=== PATIENT | male | born 1965 | race Caucasian/White ===

== ENCOUNTER 2017-06-14 08:07 | Emergency (ER) | payer OTHER ==
[2017-06-14 08:21] VITALS: TEMP 98; BMI 30.7
[2017-06-14] MEDS ORDERED: KETOROLAC TROMETHAMINE 30 MG/1 ML VIAL IVPUSH ONE (09:47)
[2017-06-14] MEDS ORDERED: KETOROLAC TROMETHAMINE 30 MG/1 ML VIAL ONE (09:51)
--- NOTE | 2017-06-14 10:07 | PDOC ---
History of Present Illness - General History Source: Patient - History of Present Illness Timing/Duration: reports: intermittent Abdominal Pain Onset Location: reports: RUQ <Linda SpiveyAlannaRebekah Last Filed: 06/14/17 11:43> <Ligia Reyna - Last Filed: 06/14/17 16:21> - General Chief Complaint: Pain Stated Complaint: right side pain Time Seen by Provider: 06/14/17 08:40 Past History - Past Medical History COPD: No Other medical history: denies. - Suicide/Smoking/Psychosocial Hx Smoking History: Never smoked <Linda SpiveyAlannaRebekah - Last Filed: 06/14/17 11:43> <Ligia Reyna - Last Filed: 06/14/17 16:21> - Past Medical History Allergies/Adverse Reactions: Allergies Allergy/AdvReac Type Severity Reaction Status Date / Time No Known Allergies Allergy Verified 06/14/17 08:16 Home Medications: Ambulatory Orders Aspirin [ASA -] 81 mg PO DAILY 06/14/17 Review of Systems - Review of Systems Constitutional: No: Chills, Fever Respiratory: No: Shortness of Breath Cardiac (ROS): No: Chest Pain ABD/GI: No: Blood Streaked Bowels, Constipated, Diarrhea, Nausea, Vomiting : No: Dysuria, Flank Pain, Hematuria <Linda SpiveyAlannaRebekah Last Filed: 06/14/17 11:43> *Physical Exam - Vital Signs Last Vital Signs Temp Pulse Resp BP Pulse Ox 98 F 63 19 125/78 98 06/14/17 08:17 06/14/17 08:17 06/14/17 08:17 06/14/17 08:17 06/14/17 08:17 - Physical Exam General Appearance: Yes: Appropriately Dressed. No: Apparent Distress HEENT: positive: Normal Voice Neck: positive: Supple Respiratory/Chest: positive: Lungs Clear, Normal Breath Sounds. negative: Respiratory Distress Cardiovascular: positive: Regular Rate, S1, S2 Gastrointestinal/Abdominal: positive: Normal Bowel Sounds, Soft. negative: Tender, Guarding, Rebound, Tenderness Musculoskeletal: negative: CVA Tenderness Integumentary: positive: Dry, Warm Neurologic: positive: Fully Oriented, Alert, Normal Mood/Affect <GuamanianJeet Last Filed: 06/14/17 11:43> - Vital Signs Last Vital Signs Temp Pulse Resp BP Pulse Ox 98 F 66 18 122/70 98 06/14/17 08:17 06/14/17 11:48 06/14/17 11:48 06/14/17 11:48 06/14/17 11:48 <Ligia Reyna - Last Filed: 06/14/17 16:21> ED Treatment Course - LABORATORY CBC & Chemistry Diagram: 06/14/17 10:00 06/14/17 10:00 <Jeet Spivey - Last Filed: 06/14/17 11:43> - LABORATORY CBC & Chemistry Diagram: 06/14/17 10:00 06/14/17 10:00 - ADDITIONAL ORDERS Additional order review: Laboratory Results 06/14/17 06/14/17 10:00 10:00 Sodium 139 Potassium 4.4 Chloride 104 Carbon Dioxide 30 Anion Gap 5 L BUN 12 Creatinine 1.4 H Creat Clearance w eGFR 53.86 Random Glucose 97 Calcium 9.6 Total Bilirubin 0.7 AST 20 ALT 26 Alkaline Phosphatase 71 Total Protein 7.8 Albumin 4.1 Lipase 146 Urine Color Ltyellow Urine Appearance Clear Urine pH 7.0 Ur Specific [place] 1.016 Urine Protein Negative Urine Glucose (UA) Negative Urine Ketones Negative Urine Blood Negative Urine Nitrite Negative Urine Bilirubin Negative Urine Urobilinogen Negative 06/14/17 10:00 RBC 4.74 MCV 91.2 MCHC 33.3 RDW 13.5 MPV 8.5 Neutrophils % 58.7 Lymphocytes % 32.4 Monocytes % 7.6 Eosinophils % 0.6 Basophils % 0.7 - Medications Given in the ED: ED Medications Discontinued Medications Generic Name Dose Route Start Last Admin Trade Name Mosheq PRN Reason Stop Dose Admin Ketorolac Tromethamine 30 mg 06/14/17 09:47 06/14/17 10:02 Toradol Injection - IVPUSH 06/14/17 09:48 30 mg ONCE ONE Administration <Ligia Reyna - Last Filed: 06/14/17 16:21> Medical Decision Making - Medical Decision Making 06/14/17 09:52 51 yo M, no sig hx, here abdominal pain. Patient reports pain to right mid abdomen 3 days, unable to describe, intermittent and worse with movement. No nausea, vomiting, change in bowel movements, dysuria, hematuria, fever or chills. No history of gallstones or kidney stones. No history of similar pain. See exam RUQ pain Pain free currently and well marine w/ benign abd Possible MSK vs biliary source, unlikely pyelo -labs and US pending 06/14/17 11:21 Labs and US neg. Pt remains pain free. Pain m/l MSK. Dc w/ OTC meds for pain control. PMD f/u 06/14/17 11:22 <Jeet Spivey - Last Filed: 06/14/17 11:43> *DC/Admit/Observation/Transfer <Jeet Spivey - Last Filed: 06/14/17 11:43> - Attestations Physician Attestion: I reviewed the case with the mid-level practitioner and agree with the mid- level practitioner's assessment, diagnosis and disposition. <Ligia Reyna - Last Filed: 06/14/17 16:21> Diagnosis at time of Disposition: Abdominal pain Qualifiers: Abdominal location: right upper quadrant Qualified Code(s): R10.11 - Right upper quadrant pain - Discharge Dispostion Disposition: HOME Condition at time of disposition: Good - Referrals Referrals: Yoly Bell MD [Primary Care Provider] - STAFF,NOT ON [Non Staff, Medical] - - Patient Instructions Printed Discharge Instructions: DI for Abdominal Pain-Adult Additional Instructions: The cause of your pain is unclear at this time as your labs and ultrasound were negative. It is possible that the pain is muscular. Take Motrin or Tylenol as needed and follow-up with your doctor - Post Discharge Activity Forms/Work/School Notes: Back to Work
[2017-06-14 10:10] LABS: BASOPHIL 0.7 % (0-2.0); EOSINOPHIL 0.6 % (0-4.5); MCH 30.4 pg (25.7-33.7); MCHC 33.3 g/dl (32.0-35.9); MEAN CELL VOLUME 91.2 fl (80-96); MEAN PLT VOLUME 8.5 fl (7.5-11.1); NEUTROPHILS 58.7 % (42.8-82.8); PLATELET COUNT 227 K/MM3 (134-434); RDW 13.5 % (11.9-15.9); WHITE BLOOD COUNT 7.8 K/mm3 (4.0-10.0)
[2017-06-14 10:11] LABS: URINE APPEARANCE CLEAR; URINE BILIRUBIN NEGATIVE (NEGATIVE); URINE BLOOD NEGATIVE (NEGATIVE); URINE COLOR LTYELLOW; URINE GLUCOSE (UA) NEGATIVE (NEGATIVE); URINE KETONE NEGATIVE (NEGATIVE); URINE NITRITE NEGATIVE (NEGATIVE); URINE PROTEIN NEGATIVE (NEGATIVE); URINE UROBILINOGEN NEGATIVE mg/dL (0.2-1.0)
[2017-06-14 10:32] LABS: ALBUMIN 4.1 g/dl (3.4-5.0); ALK PHOS 71 U/L (45-117); ANION GAP 5 (8-16); BILIRUBIN,TOTAL 0.7 mg/dL (0.2-1.0); CALCIUM 9.6 mg/dL (8.5-10.1); CO2 30 mmol/L (21-32); CREATININE 1.4 mg/dL (0.7-1.3); GLUCOSE,RANDOM 97 mg/dL (74-106); SGOT/AST 20 U/L (15-37); SGPT/ALT 26 U/L (12-78); TOT PROT 7.8 g/dl (6.4-8.2)
[2017-06-14 11:48] VITALS: BP 122/70; PULSE 66
[2017-06-14 19:55] LABS: URINE LEUK ESTERASE Negative (NEGATIVE)
== END 2017-06-14 11:48 | disposition home or self-care (01) ==
LOC: JERFT 08:07 → JER 08:07 → SUPCPDRO 08:07 → JER 11:48
PROC: 3E0333Z Introduction of Anti-inflammatory into Peripheral Vein, Percutaneous Approach (ICD-10-PCS; principal; 2017-06-14)
DX: R10.11 Right upper quadrant pain (principal)
CPT/HCPCS: 36415; 76705-TC; 80053; 81003; 83690; 85025; 96374; 99282-25

== ENCOUNTER 2017-12-02 15:38 | Emergency (ER) | payer OTHER ==
--- NOTE | 2017-12-02 15:56 | PDOC ---
Rapid Medical Evaluation Time Seen by Provider: 12/02/17 15:54 Medical Evaluation: Allergies Allergy/AdvReac Type Severity Reaction Status Date / Time No Known Allergies Allergy Verified 06/14/17 08:16 12/02/17 15:55 Healthy 51 year old male with tender mass to right side of neck since Saturday, feels like it is limiting his range of motion. No fevers/chills. No dysphagia. Alert, oriented, no distress. Tender, mobile, firm 1.5 cm mass right neck. No drooling, stridor. V/s unremarkable. -To FT for further evaluation
[2017-12-02 15:57] VITALS: BP 146/81; PULSE 87; TEMP 98.6; BMI 31.6
--- NOTE | 2017-12-02 17:15 | PDOC ---
History of Present Illness - General Chief Complaint: Wound Stated Complaint: ABSCESS Time Seen by Provider: 12/02/17 15:54 History Source: Patient Exam Limitations: No Limitations - History of Present Illness Initial Comments: 12/02/17 17:18 Best Contact: PCP: N/A Pmhx: N/A Pshx:N/A Allergies:NKDA 51-year-old male presents to the ER complaining of a bump to the right side of his neck. Patient states he noticed it after shaving approximately one week ago. Patient states it was initially slightly red which has subsided. Patient denies fever, chills, nausea/vomiting, neck pains. Patient states he gets these bumps intermittently after shaving. Patient denies any drainage or pain on palpation. Past History - Past Medical History Allergies/Adverse Reactions: Allergies Allergy/AdvReac Type Severity Reaction Status Date / Time No Known Allergies Allergy Verified 12/02/17 15:55 Home Medications: Ambulatory Orders Cephalexin Monohydrate [Keflex -] 500 mg PO BID #10 capsule 12/02/17 COPD: No - Suicide/Smoking/Psychosocial Hx Smoking History: Never smoked Hx Alcohol Use: No Drug/Substance Use Hx: No Review of Systems - Review of Systems Able to Perform ROS?: Yes Comments:: 12/02/17 17:20 CONSTITUTIONAL: Absent: fever, chills, diaphoresis, generalized weakness, malaise, loss of appetite HEENT: Absent: rhinorrhea, nasal congestion, throat pain, throat swelling, difficulty swallowing, mouth swelling, ear pain, eye pain, visual Changes CARDIOVASCULAR: Absent: chest pain, loss of consciousness, palpitations, irregular heart rate, peripheral edema RESPIRATORY: Absent: cough, shortness of breath, dyspnea with exertion, orthopnea, wheezing, stridor, hemoptysis GASTROINTESTINAL: Absent: abdominal pain, abdominal distension, nausea, vomiting, diarrhea, constipation, melena, hematochezia GENITOURINARY: Absent: dysuria, frequency, urgency, hesitancy, hematuria, flank pain, genital pain MUSCULOSKELETAL: Absent: myalgia, arthralgia, joint swelling SKIN: Absent: rash, itching, pallor +BUMP TO RIGHT SIDED NECK Is the patient limited [place]ib[place]ian proficient: No *Physical Exam - Vital Signs Last Vital Signs Temp Pulse Resp BP Pulse Ox 98.6 F 87 18 146/81 97 12/02/17 15:55 12/02/17 15:55 12/02/17 15:55 12/02/17 15:55 12/02/17 15:55 - Physical Exam Comments: 12/02/17 17:20 GENERAL: Well developed, well nourished. Awake and alert. No acute distress. HEENT: Normocephalic, atraumatic. PERRLA, EOMI. No conjunctival pallor. Sclera are non- icteric. Moist mucous membranes. Oropharynx is clear. NECK: Supple. Full ROM. No JVD. Carotid pulses 2+ and symmetric, without bruits. No thyromegaly. No lymphadenopathy. CARDIOVASCULAR: Regular rate and rhythm. No murmurs, rubs, or gallops. Distal pulses are 2+ and symmetric. PULMONARY: No evidence of respiratory distress. Lungs clear to auscultation bilaterally. No wheezing, rales or rhonchi. ABDOMINAL: Soft. Non-tender. Non-distended. No rebound or guarding. No organomegaly. Normoactive bowel sounds. MUSCULOSKELETAL Normal range of motion at all joints. No bony deformities or tenderness. No CVA tenderness. EXTREMITIES: No cyanosis. No clubbing. No edema. No calf tenderness. SKIN: Warm and dry. Normal capillary refill. No rashes. No jaundice. RIght sided neck; 1.5cm circular non mobile induration Moderate Sedation - Procedure Monitoring Vital Signs: Vital Signs Temp Pulse Resp BP Pulse Ox 98.6 F 87 18 146/81 97 12/02/17 15:55 12/02/17 15:55 12/02/17 15:55 12/02/17 15:55 12/02/17 15:55 *DC/Admit/Observation/Transfer Diagnosis at time of Disposition: Folliculitis - Discharge Dispostion Disposition: HOME Condition at time of disposition: Stable Decision to Admit order: No - Prescriptions Prescriptions: Cephalexin Monohydrate [Keflex -] 500 mg PO BID #10 capsule - Referrals Referrals: Fredi Barrientos MD [Staff Physician] - - Patient Instructions Printed Discharge Instructions: DI for Folliculitis Additional Instructions: You can follow-up with Dr. Barrientos/general surgeon or the clinic at [address] [place] [address]. in [place] Warm compress Avoid squeezing or manipulating the nodule Take Tylenol as needed for pain Return to the ER for severe/persistent or worsening symptoms Keflex as directed - Post Discharge Activity Forms/Work/School Notes: Back to Work
== END 2017-12-02 17:19 | disposition home or self-care (01) ==
LOC: JERFT 15:38
DX: L73.8 Other specified follicular disorders (principal)
CPT/HCPCS: 99281-25

== ENCOUNTER 2018-03-06 09:03 | Emergency (ER) | payer BC, OTHER ==
[2018-03-06 09:10] VITALS: TEMP 97.8; BMI 29.9
[2018-03-06] MEDS ORDERED: ACETAMINOPHEN 325 MG TABLET (FP) PO ONE (09:45)
[2018-03-06] MEDS ORDERED: KETOROLAC TROMETHAMINE 60 MG/2 ML VIAL IM ONE (09:45)
--- NOTE | 2018-03-06 09:46 | PDOC ---
History of Present Illness - General Chief Complaint: Pain Stated Complaint: RT SIDE PAIN,FEVER Time Seen by Provider: 03/06/18 09:25 History Source: Patient Exam Limitations: No Limitations - History of Present Illness Travel History: No Initial Comments: Patient is a 52 year old serbian speaking male, who presents with right sided flank pain for 1 month. Patient states that his right sided flank pain initially began 1 month ago and was intermittent but became progressively much worse 3 days ago. On Saturday he saw his PCP who sent him to get blood work done. This morning he woke up with worsening right sided flank pain that he describes as intermittent, last for a few seconds, worse with movement. He also reports light brown colored urine and decreased urine output. Patient reports that he did not take any medication for the pain. Denies nausea, vomiting, chest pain, shortness of breath, cough, headache, dizziness, numbness/tingling/weakness, urinary or bowel incontinence. 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 Past History - Past Medical History Allergies/Adverse Reactions: Allergies Allergy/AdvReac Type Severity Reaction Status Date / Time No Known Allergies Allergy Verified 03/06/18 09:05 Home Medications: Ambulatory Orders Acetaminophen 650 mg PO QID PRN #60 capsule 03/06/18 Ibuprofen 400 mg PO QID #30 tablet 03/06/18 COPD: No DVT: No - Suicide/Smoking/Psychosocial Hx Smoking History: Never smoked Information on smoking cessation initiated: No Hx Alcohol Use: No Drug/Substance Use Hx: No Substance Use Type: Cocaine Review of Systems - Review of Systems Able to Perform ROS?: No Comments:: 03/06/18 13:46 CONSTITUTIONAL: Reported: diaphoresis with pain No reported: Chills, Generalized Weakness, Malaise, Loss of Appetite HEENT: No reported: Rhinorrhea, Nasal Congestion, Throat Pain, Throat Swelling, Difficulty Swallowing, Mouth Swelling, Ear Pain, Eye Pain, Visual Changes CARDIOVASCULAR: No reported: Chest Pain, Syncope, Palpitations, Irregular Heart Rate, Lightheadedness, Peripheral Edema RESPIRATORY: No reported: Cough, Shortness of Breath, SOB with Exertion, Orthopnea, Wheezing , Stridor, Hemoptysis GASTROINTESTINAL: No reported: Abdominal pain, Abdominal Distension, Nausea, Vomiting, Diarrhea, Constipation, Melena, Hematochezia GENITOURINARY: Reported: decreased urine output, light brown colored urine No reported: Dysuria, Frequency, Urgency, Hesitancy, Flank Pain, Genital Pain MUSCULOSKELETAL: Reported: Right sided flank pain No reported: Myalgia, Arthralgia, Joint Swelling,Neck Pain SKIN: No reported: Rash, Itching, Pallor HEMEATOLOGIC/IMMUNOLOGIC: No reported: Easy Bleeding, Easy Bruising, Lymphadenopathy, Frequent infections ENDOCRINE: No reported: Unexplained Weight Gain, Unexplained Weight Loss, Heat Intolerance , Cold Intolerance NEUROLOGIC: No reported: Headache, Focal Weakness, Paresthesias, Vertigo, Lightheadedness, Unsteady Gait, Seizure, Mental Status Changes, Incontinence PSYCHIATRIC: No reported: Anxiety, Depression *Physical Exam - Vital Signs Last Vital Signs Temp Pulse Resp BP Pulse Ox 97.8 F 56 L 18 110/71 100 03/06/18 09:07 03/06/18 09:07 03/06/18 09:19 03/06/18 09:07 03/06/18 09:07 - Physical Exam Comments: 03/06/18 13:55 oriented, Nontoxic - in no acute distress. HEAD: Normocephalic, atraumatic. EYES: extraocular movements intact, sclera anicteric, conjunctiva clear. ENT: Normal voice, Moist mucous membranes. NECK: Normal range of motion, supple LUNGS: Breath sounds equal, clear to auscultation bilaterally. No wheezes, no rhonchi, no rales. HEART: Regular rate and rhythm, without murmur, rub or gallop. ABDOMEN: Soft, nontender, No guarding, no rebound.No CVA tenderness EXTREMITIES: Normal range of motion, no edema. No cyanosis. No erythema, or tenderness. MSK: TTP on R lower back parapsinal muscles NEUROLOGICAL: No facial assymetry, Normal speech, moving all 4 extremities spontaneously and symmetrically, normal gait. PSYCH: Normal mood, normal affect. SKIN: Warm, Dry, normal turgor, Medical Decision Making - Medical Decision Making 03/06/18 09:52 52-year-old man no past medical history presenting with intermittent right flank pain for the past month worsening on Saturday associated with some sweats when he has pain, pain is worse with movement, associated with dark colored urine for past couple of days. The patient is well-appearing, no acute distress he has mild tenderness to the right lumbar spine paraspinal muscles. Suspect muscular cause of his pain however consider possible kidney stones Will obtain UA to rule out hematuria Tylenol and Toradol for pain control Will reassess 03/06/18 11:02 Pts UA neg for blood pt feeling improved will dc with supportiv care and pmd fu return precautions were discussed I discussed the physical exam findings, ancillary test results and final diagnoses with the patient. I answered all of the patient's questions. The patient was satisfied with the care received and felt comfortable with the discharge plan and treatment plan. The patient will call their primary care physician within 24 hours to arrange follow-up and will return to the Emergency Department with any new, persistent or worsening symptoms. *DC/Admit/Observation/Transfer Diagnosis at time of Disposition: Lower back pain Qualifiers: Chronicity: acute Back pain laterality: right Sciatica presence: without sciatica Qualified Code(s): M54.5 - Low back pain - Discharge Dispostion Disposition: HOME Condition at time of disposition: Improved Decision to Admit order: No - Prescriptions Prescriptions: Acetaminophen 650 mg PO QID PRN #60 capsule PRN Reason: Back Pain Ibuprofen 400 mg PO QID #30 tablet - Referrals Referrals: [facility] – [place] [facility] [place] [Provider Group] - Patient Instructions Printed Discharge Instructions: DI for Low Back Pain Additional Instructions: Regrese al departamento de emergencia de inmediato con CUALQUIER sntoma nuevo, persistente o que empeore incluyendo entumecimiento, hormigueo, debilidad, fiebre o cualquier otra inquietud. [place] ibuprofeno (400 mg) / tylenol (650 mg) cada 6 horas caty 2 omer. Aplica calor a tus msculos adoloridos. DEBE llamar y hacer un seguimiento con hernandez mdico dentro de los 5 omer para angel luis evaluacin adicional de ahsan sntomas. Hernandez visita al departamento de emergencia no est completa sin un seguimiento con hernandez mdico para la reevaluacin. Los resultados se discutieron con usted. Asegrese de que hernandez mdico revise los resultados de hernandez evaluacin de emergencia. Return to the emergency department immediately with ANY new, persistent or worsening symptoms including numbness, tingling, weakness, fevers or any other concerns. Take ibuprofen (400mg)/tylenol(650mg) every 6 hours for 2 days.. Apply heat to your sore muscles. You MUST call and follow up with your doctor within 5 days for further evaluation of your symptoms. Your emergency department visit is not complete without a followup with your doctor for reevaluation.. Results were discussed with you. Please make sure your doctor reviews the results of your emergency evaluation. Print Language: [place] - Post Discharge Activity Forms/Work/School Notes: Back to Work
[2018-03-06] MEDS ORDERED: KETOROLAC TROMETHAMINE 60 MG/2 ML VIAL ONE (10:03)
[2018-03-06] MEDS ORDERED: ACETAMINOPHEN 325 MG TABLET (FP) ONE (10:03)
[2018-03-06 10:32] LABS: URINE APPEARANCE CLEAR; URINE BILIRUBIN NEGATIVE (<2.0 mg/dL); URINE COLOR LTYELLOW; URINE GLUCOSE (UA) NEGATIVE (NEGATIVE); URINE KETONE NEGATIVE (NEGATIVE); URINE LEUK ESTERASE NEGATIVE (NEGATIVE); URINE NITRITE NEGATIVE (NEGATIVE); URINE PROTEIN NEGATIVE (NEGATIVE); URINE UROBILINOGEN NEGATIVE mg/dL (0.2-1.0)
== END 2018-03-06 11:21 | disposition home or self-care (01) ==
LOC: JER 09:03
PROC: 3E0233Z Introduction of Anti-inflammatory into Muscle, Percutaneous Approach (ICD-10-PCS; principal; 2018-03-06)
DX: M54.5 Low back pain (principal)
CPT/HCPCS: 81003; 99282-25

== ENCOUNTER 2018-05-12 08:49 | Emergency (ER) | payer BC, OTHER ==
[2018-05-12 09:05] VITALS: BP 139/84; PULSE 74; TEMP 97.9; BMI 33.6
--- NOTE | 2018-05-12 09:24 | PDOC ---
Attending Attestation - Resident Resident Name: Ligia Daniel - ED Attending Attestation I have performed the following: I have examined & evaluated the patient, The case was reviewed & discussed with the resident, I agree w/resident's findings & plan, Exceptions are as noted - HPI HPI: 05/12/18 10:42 Reviewed residents HPI - Physicial Exam PE: 05/12/18 10:42 Reviewed residents PE - Medical Decision Making 05/12/18 10:42 52 years old no significant past medical history presents emergency Department musculoskeletal right shoulder discomfort. Patient injured his shoulder while pulling on a heavy piece of wiring while at work On examination differential diagnosis includes minor rotator cuff injury with no instability versus labrum injury with no instability X-ray demonstrates no acute pathology. Recommend short course of NSAIDs rest ice and orthopedic follow-up Findings, need for follow-up and strict return instructions discussed patient.
--- NOTE | 2018-05-12 09:35 | PDOC ---
History of Present Illness - General Chief Complaint: Pain, Acute Stated Complaint: SHOULDER CHEST PAIN Time Seen by Provider: 05/12/18 09:10 Past History - Past Medical History Allergies/Adverse Reactions: Allergies Allergy/AdvReac Type Severity Reaction Status Date / Time No Known Allergies Allergy Verified 05/12/18 09:00 Home Medications: Ambulatory Orders Lidocaine 5% Patch [Lidoderm -] 1 patch TP DAILY #7 patch 05/12/18 COPD: No DVT: No - Suicide/Smoking/Psychosocial Hx Smoking History: Never smoked Hx Alcohol Use: No Drug/Substance Use Hx: Yes (cocaine, stopped 2016) Substance Use Type: Cocaine *Physical Exam - Vital Signs Last Vital Signs Temp Pulse Resp BP Pulse Ox 97.9 F 74 16 139/84 99 05/12/18 09:02 05/12/18 09:02 05/12/18 09:02 05/12/18 09:02 05/12/18 09:02 Medical Decision Making - Medical Decision Making EKG in triage: rate 78, QTc 410, NSR 05/12/18 09:50 Patient reports feeling better 05/12/18 10:23 *DC/Admit/Observation/Transfer Diagnosis at time of Disposition: Shoulder pain, right - Discharge Dispostion Disposition: HOME Condition at time of disposition: Improved - Prescriptions Prescriptions: Lidocaine 5% Patch [Lidoderm -] 1 patch TP DAILY #7 patch - Referrals Referrals: Alton Broderick MD [Primary Care Provider] - Ramirez Baptiste MD [Staff Physician] - Thang Stanford MD [Staff Physician] - - Patient Instructions Printed Discharge Instructions: How To Perform RICE (Rest, Ice, Compress, Elevate), DI for Shoulder Pain Additional Instructions: You came to the ED for shoulder pain. Your pain improved with toradol and a lidoderm patch. Xray did not show acute pathology. Use Rest, Ice, Compression, and Elevation for your shoulder, as described in the handout. Apply lidoderm patches for pain. Prescription sent to your pharmacy. You can take [id number] aleve, motrin, or tylenol for pain. Follow the instructions on the medication bottle. Follow-up with your orthopedist this week. We have referred you to another specialist in case you cannot see your current doctor. Call for emergency medical services or go to the emergency room right away if any of the following occurs: you have severe pain that is worsening, any new numbness or weakness, any severe pain with movement of your fingers, or any other new or concerning symptoms. If you think you have an emergency, call for medical help right away. - Post Discharge Activity Forms/Work/School Notes: Back to Work
[2018-05-12] MEDS ORDERED: KETOROLAC TROMETHAMINE 30 MG/1 ML VIAL IM ONE (09:41)
[2018-05-12] MEDS ORDERED: LIDOCAINE 5% TOPICAL PATCH TP ONE (09:43)
[2018-05-12] MEDS ORDERED: LIDOCAINE 5% TOPICAL PATCH ONE (09:49)
[2018-05-12] MEDS ORDERED: KETOROLAC TROMETHAMINE 30 MG/1 ML VIAL ONE (09:50)
--- NOTE | 2018-05-12 15:06 | EKG ---
Test Reason : Blood Pressure : / mmHG Vent. Rate : 078 BPM Atrial Rate : 078 BPM P-R Int : 140 ms QRS Dur : 088 ms QT Int : 360 ms P-R-T Axes : 062 -20 036 degrees QTc Int : 410 ms NORMAL SINUS RHYTHM WITH SINUS ARRHYTHMIA NORMAL ECG NO PREVIOUS ECGS AVAILABLE Confirmed by JORJE HAMMOND MD ([id number]) on 05/12/2018 3:05:51 PM Referred By: Confirmed By:JORJE HAMMOND MD
[2018-05-12] MEDS ORDERED: LIDOCAINE PATCH REMOVAL MC SCH (22:00)
== END 2018-05-12 10:40 | disposition home or self-care (01) ==
LOC: JER 08:49
PROC: 3E0233Z Introduction of Anti-inflammatory into Muscle, Percutaneous Approach (ICD-10-PCS; principal; 2018-05-12)
DX: M25.511 Pain in right shoulder (principal)
CPT/HCPCS: 73030-TC-RT-FY; 93005; 93010; 99283-25